=== PATIENT | female | born 1965 | race African-American/Black ===

== ENCOUNTER 2017-03-27 22:04 | Emergency (ER) | payer OTHER, MEDICAID ==
[~2017-03-27] VITALS: Ht 175.3 cm; Wt 97.1 kg
[~2017-03-27 22:04] MED LIST: ALBU18 IN; ALPR-140 PO; ASPI325T4 PO; DIPH50CA PO; FLUO20CA19 PO; GABA800T97 PO; HYDR-2595 PO; HYDR25TA4 PO; INSLANTI SC; INSLISPI SC; LEVO500T21 PO; METO-169 PO; METR500T PO; MIRT15TA3 PO; PROM25TA5 PO
[2017-03-27 22:53] LABS: Basophils # (auto) 0.1 uL; Basophils % (auto) 1.1 % (0.0-2.0); Eosinophils # (auto) 0.3 uL; Eosinophils % (auto) 2.7 % (0.0-7.0); Hematocrit 43.5 % (36.0-46.0); Hemoglobin 14.2 g/dL (12.2-16.2); Lymphocytes # (auto) 4.2 uL; Lymphocytes % (auto) 36.9 % (10.0-50.0); Mean Corpuscular Hemoglobin 28.4 pg (28.0-32.0); Mean Corpuscular Hgb Conc. 32.5 g/dL (32.0-36.0); Mean Corpuscular Volume 87.2 fL (80.0-100.0); Mean Platelet Volume 10.6 fL (6.9-10.8); Monocytes # (auto) 0.5 uL; Monocytes % (auto) 4.5 % (0.0-12.0); Neutrophils # (auto) 6.2 uL; Neutrophils % (auto) 54.8 % (37.0-80.0); Nucleated Red Blood Cells % 0.1 %; Platelet Count (auto) 197 10^3/uL (140-450); Red Cell Distribution Width 15.4 % (11.8-14.3); White Blood Cell 11.3 10^3/uL (4.4-10.8)
[2017-03-27 23:05] LABS: Albumin 3.2 g/dL (3.4-5.0); Amylase 37 U/L (25-115); Anion Gap 10 (5-15); Aspartate Aminotransferase 16 U/L (15-37); Blood Urea Nitrogen 18 mg/dL (7-18); Calcium 8.4 mg/dL (8.5-10.1); Carbon Dioxide 24 mmol/L (21-32); Chloride 99 mmol/L (98-107); GFR African American 60 mL/min; GFR Non-African American 50 mL/min; Glucose 333 mg/dL (74-106); Magnesium 2.1 mg/dL (1.6-2.6); Potassium 3.7 mmol/L (3.5-5.1); Sodium 133 mmol/L (136-145)
[2017-03-27 23:12] LABS: Alkaline Phosphatase 106 U/L (45-117); Bilirubin, Total 0.3 mg/dL (0.2-1.0); Total Protein 8.1 g/dL (6.4-8.2)
[2017-03-28] MEDS ORDERED: ONDANSETRON HCL 4 MG/2 ML VIAL IV ONE (02:00)
[2017-03-28] MEDS ORDERED: SODIUM CHLORIDE 0.9% 1,000 ML IV ONE (02:00)
[2017-03-28] MEDS ORDERED: MORPHINE SULFATE 4 MG/ML SYRG IV ONE (02:00)
[2017-03-28] MEDS ORDERED: InsuLIN REG 1unit/0.01ml Soln (100units/ml) IV ONE (02:45)
[2017-03-28 03:52] LABS: Urine Bilirubin Negative (Negative); Urine Blood Negative /uL (Negative); Urine Color Yellow (Yellow); Urine Glucose 4+ mg/dL (Normal); Urine Ketone Negative (Negative); Urine Nitrite Negative (Negative); Urine RBC 1 /hpf (0 - 4); Urine Squamous Epithelial Cell FEW /hpf (<5); Urine Urobilinogen Normal (Negative)
[2017-03-28] MEDS ORDERED: FLUCONAZOLE 100 MG TAB PO ONE (05:00)
[2017-03-28] MEDS ORDERED: cefTRIAXone 1GM/10ml IVPUSH 10 ML IV ONE (05:00)
[2017-03-28] MEDS ORDERED: ENOXAPARIN SOD 100 MG/1 ML SYRINGE SC ONE (05:30)
[2017-03-28 06:20] VITALS: BP 116/86
== END 2017-03-28 06:11 | disposition short-term general hospital (02) ==
LOC: ER 22:04
DX: I74.5 Embolism and thrombosis of iliac artery (principal); N39.0 Urinary tract infection, site not specified; K57.90 Diverticulosis of intestine, part unspecified, without perforation or abscess without bleeding; B37.9 Candidiasis, unspecified; I25.10 Atherosclerotic heart disease of native coronary artery without angina pectoris; E11.22 Type 2 diabetes mellitus with diabetic chronic kidney disease; I12.9 Hypertensive chronic kidney disease with stage 1 through stage 4 chronic kidney disease, or unspecified chronic kidney disease; N18.9 Chronic kidney disease, unspecified; J44.9 Chronic obstructive pulmonary disease, unspecified; K21.9 Gastro-esophageal reflux disease without esophagitis; E78.5 Hyperlipidemia, unspecified; I25.2 Old myocardial infarction; I73.9 Peripheral vascular disease, unspecified; F17.210 Nicotine dependence, cigarettes, uncomplicated; Z95.1 Presence of aortocoronary bypass graft; Z79.4 Long term (current) use of insulin; Z79.82 Long term (current) use of aspirin; Z86.73 Personal history of transient ischemic attack (TIA), and cerebral infarction without residual deficits; Z83.3 Family history of diabetes mellitus; Z82.3 Family history of stroke
CPT/HCPCS: 36415; 74176; 80053; 81001; 82010; 82150; 82962; 83690; 83735; 84484; 85025; 93005; 96361; 96372; 96374; 96375; 99285; J1650; J1815; J2270; J2405; J7030

== ENCOUNTER 2018-01-12 10:33 | Emergency (ER) | payer OTHER, MEDICAID ==
[~2018-01-12] VITALS: Ht 175.3 cm; Wt 99.8 kg
[~2018-01-12 10:33] MED LIST changes: +FLUO-125 PO; -FLUO20CA19 PO; -LEVO500T21 PO; -METR500T PO
[2018-01-12 10:46] VITALS: BP 133/55
[2018-01-12] MEDS ORDERED: ONDANSETRON ODT 4 MG TAB PO ONE (13:30)
[2018-01-12] MEDS ORDERED: MEPERIDINE HCL (50 MG/ML) 1 ML VIAL IM ONE (13:30)
== END 2018-01-12 13:55 | disposition left against medical advice (07) ==
LOC: ER 10:33
DX: R51 Headache (principal); M48.07 Spinal stenosis, lumbosacral region; M19.90 Unspecified osteoarthritis, unspecified site; I25.810 Atherosclerosis of coronary artery bypass graft(s) without angina pectoris; J44.9 Chronic obstructive pulmonary disease, unspecified; K21.9 Gastro-esophageal reflux disease without esophagitis; E78.5 Hyperlipidemia, unspecified; I25.2 Old myocardial infarction; E07.9 Disorder of thyroid, unspecified; E11.22 Type 2 diabetes mellitus with diabetic chronic kidney disease; I13.0 Hypertensive heart and chronic kidney disease with heart failure and stage 1 through stage 4 chronic kidney disease, or unspecified chronic kidney disease; N18.9 Chronic kidney disease, unspecified; I50.9 Heart failure, unspecified; F17.210 Nicotine dependence, cigarettes, uncomplicated; Z88.8 Allergy status to other drugs, medicaments and biological substances; Z79.899 Other long term (current) drug therapy; Z79.4 Long term (current) use of insulin; Z86.73 Personal history of transient ischemic attack (TIA), and cerebral infarction without residual deficits; Z90.710 Acquired absence of both cervix and uterus; Z95.1 Presence of aortocoronary bypass graft; Y93.89 Activity, other specified; V49.9XXA Car occupant (driver) (passenger) injured in unspecified traffic accident, initial encounter; Y99.8 Other external cause status; Y92.89 Other specified places as the place of occurrence of the external cause
CPT/HCPCS: 72131; 96372; 99284; J2175; Q0162

== ENCOUNTER 2019-07-23 19:40 | Emergency (ER) | payer OTHER, MEDICAID ==
[~2019-07-23] VITALS: Ht 162.6 cm; Wt 99.8 kg
[~2019-07-23 19:40] MED LIST changes: -ALPR-140 PO; +ALPR0.5T8 PO; -MIRT15TA3 PO; +MIRT1TAB38 PO
[2019-07-23] MEDS ORDERED: SODIUM CHLORIDE 0.9% 2,000 ML IV ONE (19:45)
[2019-07-23 21:16] LABS: Basophils # (auto) 0.1 10 ^3/uL (0-0.2); Basophils % (auto) 0.8 % (0.0-2.0); Eosinophils # (auto) 0.3 10 ^3/uL (0-0.8); Eosinophils % (auto) 3.1 % (0.0-7.0); Hematocrit 39.8 % (36.0-46.0); Hemoglobin 12.8 g/dL (12.2-16.2); Lymphocytes # (auto) 3.5 10 ^3/uL (0.4-5.4); Lymphocytes % (auto) 43.4 % (10.0-50.0); Mean Corpuscular Hemoglobin 28.4 pg (28.0-32.0); Mean Corpuscular Hgb Conc. 32.3 g/dL (32.0-36.0); Mean Corpuscular Volume 87.9 fL (80.0-100.0); Monocytes # (auto) 0.4 10 ^3/uL (0-1.3); Monocytes % (auto) 5.3 % (0.0-12.0); Neutrophils # (auto) 3.9 10 ^3/uL (1.6-8.6); Neutrophils % (auto) 47.4 % (37.0-80.0); Nucleated Red Blood Cells % 0.1 %; Platelet Count (auto) 122 10^3/uL (140-450); Red Blood Cells 4.53 10^6/uL (4.0-5.20); Red Cell Distribution Width 15.1 % (11.8-14.3); White Blood Cell 8.1 10^3/uL (4.4-10.8)
[2019-07-23 21:31] LABS: INR 1.01 (0.9-1.15); Partial Thromboplastin Time 22.3 sec (23.64-32.05)
[2019-07-23 21:36] LABS: Albumin 3.1 g/dL (3.4-5.0); Calcium 8.7 mg/dL (8.5-10.1); Potassium 3.2 mmol/L (3.5-5.1)
--- NOTE | 2019-07-23 21:37 | NUR ---
Respiratory note: ALBUTEROL HFA TX ADMINISTERED BY RN.
[2019-07-23 21:39] LABS: BUN/Creatinine Ratio 22.7; Bilirubin, Total 0.3 mg/dL (0.2-1.0); Total Protein 7.1 g/dL (6.4-8.2)
[2019-07-23] MEDS ORDERED: ALBUTEROL SULF HFA 90MCG INH 200DOSE IN SCH (22:00)
[2019-07-23 23:01] VITALS: BP 114/51
== END 2019-07-24 00:09 | disposition home or self-care (01) ==
LOC: ER 19:40 → EDBD 19:40 → ER 07-24 00:09
DX: J20.9 Acute bronchitis, unspecified (principal); I25.10 Atherosclerotic heart disease of native coronary artery without angina pectoris; I25.2 Old myocardial infarction; K21.9 Gastro-esophageal reflux disease without esophagitis; E78.5 Hyperlipidemia, unspecified; J44.9 Chronic obstructive pulmonary disease, unspecified; I12.9 Hypertensive chronic kidney disease with stage 1 through stage 4 chronic kidney disease, or unspecified chronic kidney disease; E11.22 Type 2 diabetes mellitus with diabetic chronic kidney disease; N18.9 Chronic kidney disease, unspecified; F17.210 Nicotine dependence, cigarettes, uncomplicated; Z20.828 Contact with and (suspected) exposure to other viral communicable diseases; Z86.73 Personal history of transient ischemic attack (TIA), and cerebral infarction without residual deficits; Z95.1 Presence of aortocoronary bypass graft; Z90.710 Acquired absence of both cervix and uterus
CPT/HCPCS: 36415; 71045; 80053; 82728; 83605; 83880; 84484; 85025; 85379; 85610; 85730; 87040; 87070; 87635; 87804; 87880; 93005; 94640; 99001; 99285; J7030

== ENCOUNTER 2020-08-30 12:39 | Inpatient (IN) | payer OTHER, MEDICAID ==
[~2020-08-30] VITALS: Ht 172.7 cm; Wt 95.3 kg
[~2020-08-30 12:39] MED LIST changes: -METO-169 PO; +METO-289 PO
[2020-08-30 13:34] LABS: Basophils # (auto) 0 10 ^3/uL (0-0.2); Basophils % (auto) 0.5 % (0.0-2.0); Eosinophils # (auto) 0.2 10 ^3/uL (0-0.8); Eosinophils % (auto) 2.8 % (0.0-7.0); Hematocrit 42.5 % (36.0-46.0); Hemoglobin 13.7 g/dL (12.2-16.2); Lymphocytes # (auto) 2.4 10 ^3/uL (0.4-5.4); Lymphocytes % (auto) 33.5 % (10.0-50.0); Mean Corpuscular Hemoglobin 28.5 pg (28.0-32.0); Mean Corpuscular Hgb Conc. 32.3 g/dL (32.0-36.0); Mean Corpuscular Volume 88.1 fL (80.0-100.0); Monocytes # (auto) 0.4 10 ^3/uL (0-1.3); Neutrophils # (auto) 4.1 10 ^3/uL (1.6-8.6); Neutrophils % (auto) 58.2 % (37.0-80.0); Nucleated Red Blood Cells % 0.1 %; Platelet Count (auto) 176 10^3/uL (140-450); Red Blood Cells 4.82 10^6/uL (4.0-5.20); Red Cell Distribution Width 15.8 % (11.8-14.3); White Blood Cell 7.1 10^3/uL (4.4-10.8)
[2020-08-30 13:50] LABS: Albumin 3.2 g/dL (3.4-5.0); Anion Gap 8 (5-15); BUN/Creatinine Ratio 14.5; Blood Urea Nitrogen 23 mg/dL (7-18); Calcium 8.2 mg/dL (8.5-10.1); Carbon Dioxide 27 mmol/L (21-32); Chloride 99 mmol/L (98-107); GFR African American 43 mL/min; GFR Non-African American 36 mL/min; INR 0.97 (0.9-1.15); Partial Thromboplastin Time 24.3 sec (23.0-31.2); Potassium 3.6 mmol/L (3.5-5.1); Sodium 134 mmol/L (136-145)
[2020-08-30 13:55] LABS: Alanine Aminotransferase 25 U/L (13-56); Alkaline Phosphatase 114 U/L (45-117); Aspartate Aminotransferase 16 U/L (15-37); Bilirubin, Total 0.4 mg/dL (0.2-1.0); Total Protein 7.5 g/dL (6.4-8.2)
[2020-08-30 13:57] LABS: Glucose 408 mg/dL (74-106)
[2020-08-30] MEDS ORDERED: ONDANSETRON HCL 4 MG/2 ML VIAL IV ONE (14:00)
[2020-08-30] MEDS ORDERED: SODIUM CHLORIDE 0.9% 1,000 ML IV ONE (14:00)
[2020-08-30] MEDS ORDERED: MORPHINE SULFATE 4 MG/ML SYR/VIAL IV ONE (14:00)
[2020-08-30] MEDS ORDERED: InsuLIN REG 1unit/0.01ml Soln (100units/ml) IV ONE (14:00)
[2020-08-30] MEDS ORDERED: diphenhdrAMINE HCL 50 MG/1 ML VL ONE (14:26)
[2020-08-30] MEDS ORDERED: diphenhdrAMINE HCL 50 MG/1 ML VL IV ONE (14:45)
[2020-08-30] MEDS ORDERED: EPINEPHrine HCL 1 MG/1 ML AMP SC ONE (15:15)
[2020-08-30 16:31] LABS: Urine WBC None Seen /hpf (0 - 5)
[2020-08-30 16:37] LABS: Urine Bacteria NONE SEEN /hpf (None Seen); Urine Blood Negative /uL (Negative); Urine Specific Gravity 1.027 (1.001-1.035)
[2020-08-30] MEDS ORDERED: NITROGLYCERIN 0.4 MG SL TAB SL PRN (18:15)
[2020-08-30] MEDS: MEPERIDINE HCL (25 MG/ML) 1ML VIAL IV PRN (18:23)
[2020-08-30] MEDS: PROMETHAZINE HCL 25 MG/ML 1ML IV PRN (18:23)
[2020-08-30 20:46] VITALS: BP 118/55
[2020-08-30] MEDS: MIRTAZAPINE 30 MG TAB PO SCH (21:58)
[2020-08-30] MEDS: GABAPENTIN 100 MG CAP PO SCH (21:58)
[2020-08-30 22:00] VITALS: BP 118/55
[2020-08-30] MEDS ORDERED: METOPROLOL SUCCINATE XL 50 MG TAB PO SCH (22:00)
[2020-08-30] MEDS: OXYCODONE W/ ACETAMINOPHEN 5/325MG TABLET PO PRN (22:10)
[2020-08-31] VITALS (7 sets, daily range): BP systolic 107–150; BP diastolic 0–71
[2020-08-31] MEDS: PROMETHAZINE HCL 25 MG/ML 1ML IV PRN ×3 (01:33→19:00)
[2020-08-31] MEDS: MEPERIDINE HCL (25 MG/ML) 1ML VIAL IV PRN ×6 (01:34→23:00)
[2020-08-31] MEDS ORDERED: ATOR40TA52 PO (02:49)
[2020-08-31] MEDS ORDERED: PNEUMOCOCCAL VACC POLYS 25 MCG/0.5 ML VIAL IM ONE (03:00)
[2020-08-31] MEDS: OXYCODONE W/ ACETAMINOPHEN 5/325MG TABLET PO PRN (04:30)
[2020-08-31] MEDS: GABAPENTIN 100 MG CAP PO SCH ×2 (04:42→14:30)
[2020-08-31] MEDS: ALPRAZolam 0.5 MG TAB PO SCH (09:26)
[2020-08-31] MEDS: FLUoxetine HCL 20 MG CAP PO SCH (09:28)
[2020-08-31] MEDS ORDERED: ASPirin 325 MG TAB PO SCH (10:00)
[2020-08-31] MEDS: InsuLIN REG 1unit/0.01ml Soln (100units/ml) SC SCH ×3 (11:30→22:00)
[2020-08-31] MEDS ORDERED: DEXTROSE (50%) 50ML SYRG IV PRN (11:30)
[2020-08-31] MEDS: ACCU-CHEK COMFORT CURVE STRIP VI SCH ×3 (11:30→21:40)
[2020-08-31 11:50] LABS: BUN/Creatinine Ratio 18.9; Calcium 8.8 mg/dL (8.5-10.1); Potassium 4.1 mmol/L (3.5-5.1)
[2020-08-31] MEDS: ASPirin-EC 81 mg tab PO SCH (13:11)
[2020-08-31] MEDS: METOPROLOL TARTRATE 50 MG TAB PO SCH ×2 (13:11→21:37)
[2020-08-31 14:02] LABS: Amphetamine Screen, Urine NEGATIVE (NEGATIVE); Barbiturate Scree,Urine NEGATIVE (NEGATIVE); Benzodiazephine Screen, Urine NEGATIVE (NEGATIVE); Cannabinoid Screen, Urine NEGATIVE (NEGATIVE); Cocaine Screen, Urine NEGATIVE (NEGATIVE); Opiate Scree,Urine NEGATIVE (NEGATIVE); Phencyclidine Screen, Urine NEGATIVE (NEGATIVE)
[2020-08-31] MEDS ORDERED: diphenhdrAMINE HCL 25 MG CAP PO PRN (21:15)
[2020-08-31] MEDS: MIRTAZAPINE 30 MG TAB PO SCH (21:28)
[2020-08-31] MEDS: SODIUM CHLORIDE 0.9% 1,000 ML IV SCH (21:30)
[2020-08-31] MEDS ORDERED: ATORVASTATIN 20 MG TAB PO SCH (22:00)
[2020-08-31] MEDS: GABAPENTIN 300 MG CAP PO SCH ×2 (22:00→23:14)
[2020-08-31] MEDS: INSULIN LANTUS (GLARGINE) 1 /0.01ml (100units/ml) SC SCH (22:00)
[2020-08-31] MEDS: METOCLOPRAMIDE HCL 10 MG TAB PO SCH (23:01)
[2020-08-31] MEDS ORDERED: TEMAZEPAM 15 MG CAP PO ONE (23:30)
[2020-09-01] MEDS: PROMETHAZINE HCL 25 MG/ML 1ML IV PRN ×2 (04:03→09:58)
[2020-09-01] MEDS: MEPERIDINE HCL (25 MG/ML) 1ML VIAL IV PRN ×2 (04:03→09:57)
[2020-09-01 05:00] VITALS: BP 133/52
[2020-09-01] MEDS: GABAPENTIN 300 MG CAP PO SCH ×2 (06:00→13:59)
[2020-09-01] MEDS: METOCLOPRAMIDE HCL 10 MG TAB PO SCH ×2 (06:00→13:59)
[2020-09-01] MEDS: ACCU-CHEK COMFORT CURVE STRIP VI SCH (06:12)
[2020-09-01] MEDS: InsuLIN REG 1unit/0.01ml Soln (100units/ml) SC SCH (06:13)
[2020-09-01] MEDS: INSULIN LANTUS (GLARGINE) 1 /0.01ml (100units/ml) SC SCH (07:00)
[2020-09-01] MEDS: SODIUM CHLORIDE 0.9% 1,000 ML IV SCH (07:30)
[2020-09-01 08:20] LABS: Basophils # (auto) 0 10 ^3/uL (0-0.2); Basophils % (auto) 0.4 % (0.0-2.0); Eosinophils # (auto) 0 10 ^3/uL (0-0.8); Eosinophils % (auto) 0.1 % (0.0-7.0); Hematocrit 41.1 % (36.0-46.0); Hemoglobin 13.7 g/dL (12.2-16.2); Lymphocytes # (auto) 0.8 10 ^3/uL (0.4-5.4); Mean Corpuscular Hemoglobin 29.4 pg (28.0-32.0); Mean Corpuscular Hgb Conc. 33.4 g/dL (32.0-36.0); Monocytes # (auto) 0 10 ^3/uL (0-1.3); Monocytes % (auto) 0.6 % (0.0-12.0); Neutrophils # (auto) 5.4 10 ^3/uL (1.6-8.6); Neutrophils % (auto) 86.9 % (37.0-80.0); Platelet Count (auto) 143 10^3/uL (140-450); Red Blood Cells 4.67 10^6/uL (4.0-5.20); Red Cell Distribution Width 15.7 % (11.8-14.3); White Blood Cell 6.3 10^3/uL (4.4-10.8)
[2020-09-01 08:30] VITALS: BP 157/76
[2020-09-01 08:35] LABS: Albumin 2.8 g/dL (3.4-5.0); Calcium 8.3 mg/dL (8.5-10.1); Magnesium 2.6 mg/dL (1.6-2.6)
[2020-09-01 08:41] LABS: BUN/Creatinine Ratio 24.7; Bilirubin, Total 0.3 mg/dL (0.2-1.0); Total Protein 7.2 g/dL (6.4-8.2)
[2020-09-01] MEDS ORDERED: ERGOCALCIFEROL 50,000 UNIT(1.25MG) CAP PO SCH (09:00)
[2020-09-01] MEDS ORDERED: CHOL20007 PO (09:07)
[2020-09-01] MEDS ORDERED: DEXTROSE (50%) 50ML SYRG IV PRN (09:15)
[2020-09-01] MEDS: ASPirin-EC 81 mg tab PO SCH (09:48)
[2020-09-01] MEDS: METOPROLOL TARTRATE 50 MG TAB PO SCH (09:48)
[2020-09-01] MEDS: FLUoxetine HCL 20 MG CAP PO SCH (09:49)
[2020-09-01] MEDS: ALPRAZolam 0.5 MG TAB PO SCH (09:49)
[2020-09-01] MEDS ORDERED: DexAMETHasone INJECTION 10 MG in D5W 5% 50 ML IV SCH (10:00)
[2020-09-01] MEDS ORDERED: InsuLIN REG 1unit/0.01ml Soln (100units/ml) SC SCH ×2 (11:30→22:00)
[2020-09-01] MEDS ORDERED: ACCU-CHEK COMFORT CURVE STRIP VI SCH (11:30)
[2020-09-01 11:49] VITALS: BP 161/80
[2020-09-01 12:07] VITALS: BP 161/80
[2020-09-01 12:30] VITALS: BP 125/68
== END 2020-09-01 14:14 | disposition home health service (06) | DRG 637 ==
LOC: EDBD 12:39 → ER 12:39 → TELE 18:01 → EEVIPCON 18:01 → TELE-CENTR 20:46
PROVIDERS: ADMIT Nurse Practitioner Acute Care; ATTEND Internal Medicine
PROC: 5A09357 Assistance with Respiratory Ventilation, Less than 24 Consecutive Hours, Continuous Positive Airway Pressure (ICD-10-PCS; principal; 2020-08-31)
DX: E11.65 Type 2 diabetes mellitus with hyperglycemia (principal); N17.0 Acute kidney failure with tubular necrosis; I69.354 Hemiplegia and hemiparesis following cerebral infarction affecting left non-dominant side; M54.5 Low back pain; I25.10 Atherosclerotic heart disease of native coronary artery without angina pectoris; G89.4 Chronic pain syndrome; Z20.822 Contact with and (suspected) exposure to COVID-19; E55.9 Vitamin D deficiency, unspecified; E66.01 Morbid (severe) obesity due to excess calories; E78.5 Hyperlipidemia, unspecified; E89.0 Postprocedural hypothyroidism; G89.0 Central pain syndrome; I12.9 Hypertensive chronic kidney disease with stage 1 through stage 4 chronic kidney disease, or unspecified chronic kidney disease; J44.9 Chronic obstructive pulmonary disease, unspecified; E11.42 Type 2 diabetes mellitus with diabetic polyneuropathy; E11.51 Type 2 diabetes mellitus with diabetic peripheral angiopathy without gangrene; E11.22 Type 2 diabetes mellitus with diabetic chronic kidney disease; M19.90 Unspecified osteoarthritis, unspecified site; E11.21 Type 2 diabetes mellitus with diabetic nephropathy; Z79.4 Long term (current) use of insulin; Z68.31 Body mass index [BMI] 31.0-31.9, adult; Z90.710 Acquired absence of both cervix and uterus; I25.2 Old myocardial infarction; Z79.82 Long term (current) use of aspirin; Z79.899 Other long term (current) drug therapy; Z82.3 Family history of stroke; Z82.49 Family history of ischemic heart disease and other diseases of the circulatory system; Z83.3 Family history of diabetes mellitus; Z95.1 Presence of aortocoronary bypass graft; N18.31 Chronic kidney disease, stage 3a; W18.30XA Fall on same level, unspecified, initial encounter; F17.210 Nicotine dependence, cigarettes, uncomplicated; F41.9 Anxiety disorder, unspecified; F32.9 Major depressive disorder, single episode, unspecified
CPT/HCPCS: 36415; 70450; 70551; 71045; 72100; 72131; 80048; 80053; 80061; 80307; 81001; 82306; 82962; 83036; 83735; 83880; 84443; 84484; 85025; 85610; 85730; 87426; 93005; 93886; 94660; 94760; 96374; 96375; 97163; G0378; J0171; J1100; J1815; J2405; J7060

== ENCOUNTER 2020-10-13 11:44 | Emergency (ER) | payer OTHER, MEDICAID ==
[~2020-10-13] VITALS: Ht 175.3 cm; Wt 99.8 kg
[~2020-10-13 11:44] MED LIST changes: +ATOR40TA52 PO
[2020-10-13 13:41] LABS: Basophils # (auto) 0.1 10 ^3/uL (0-0.2); Basophils % (auto) 0.7 % (0.0-2.0); Eosinophils # (auto) 0.2 10 ^3/uL (0-0.8); Eosinophils % (auto) 2.5 % (0.0-7.0); Hematocrit 41.4 % (36.0-46.0); Hemoglobin 13.9 g/dL (12.2-16.2); Lymphocytes # (auto) 2.8 10 ^3/uL (0.4-5.4); Lymphocytes % (auto) 37.5 % (10.0-50.0); Mean Corpuscular Hemoglobin 29.3 pg (28.0-32.0); Mean Corpuscular Hgb Conc. 33.6 g/dL (32.0-36.0); Mean Corpuscular Volume 87.2 fL (80.0-100.0); Monocytes # (auto) 0.2 10 ^3/uL (0-1.3); Monocytes % (auto) 3.3 % (0.0-12.0); Neutrophils # (auto) 4.1 10 ^3/uL (1.6-8.6); Nucleated Red Blood Cells % 0.1 %; Platelet Count (auto) 169 10^3/uL (140-450); Red Blood Cells 4.75 10^6/uL (4.0-5.20); Red Cell Distribution Width 15.1 % (11.8-14.3); White Blood Cell 7.3 10^3/uL (4.4-10.8)
[2020-10-13 13:57] LABS: INR 1.01 (0.9-1.15); Partial Thromboplastin Time 24.4 sec (23.0-31.2)
[2020-10-13 14:05] LABS: Alanine Aminotransferase 27 U/L (13-56); Albumin 3.5 g/dL (3.4-5.0); Anion Gap 3 (5-15); Aspartate Aminotransferase 24 U/L (15-37); BUN/Creatinine Ratio 15.6; Blood Urea Nitrogen 19 mg/dL (7-18); Calcium 9.8 mg/dL (8.5-10.1); Carbon Dioxide 29 mmol/L (21-32); Chloride 104 mmol/L (98-107); GFR African American 59 mL/min; GFR Non-African American 48 mL/min; Glucose 241 mg/dL (74-106); Potassium 4.3 mmol/L (3.5-5.1); Sodium 136 mmol/L (136-145)
[2020-10-13 14:10] LABS: Alkaline Phosphatase 95 U/L (45-117); Bilirubin, Total 0.5 mg/dL (0.2-1.0); Total Protein 7.9 g/dL (6.4-8.2)
[2020-10-13 16:41] VITALS: BP 133/77
[2020-10-13] MEDS ORDERED: IOHEXOL 350 MG/ML 100ML IJ ONE (16:57)
[2020-10-13] MEDS ORDERED: FUROSEMIDE 40 MG/4 ML VIAL IV ONE (17:45)
[2020-10-13] MEDS ORDERED: ONDANSETRON HCL 4 MG/2 ML VIAL IV ONE (17:45)
[2020-10-13] MEDS ORDERED: SPIRONOLACTONE 25 MG TAB PO ONE (17:45)
[2020-10-13] MEDS ORDERED: HYDROmorphone HCL 2 MG/ML VL IV ONE (17:45)
[2020-10-13] MEDS ORDERED: HYDROcodone-ACET 10/325MG TAB PO ONE ×2 (18:45→20:45)
[2020-10-13 21:24] LABS: Urine Bacteria MANY /hpf (None Seen); Urine Blood Negative /uL (Negative); Urine Hyaline Cast FEW /lpf (0 - 2); Urine Mucus FEW (None Seen); Urine Specific Gravity 1.017 (1.001-1.035); Urine WBC 9 /hpf (0 - 5)
== END 2020-10-13 21:35 | disposition left against medical advice (07) ==
LOC: ER 11:44
DX: R07.81 Pleurodynia (principal); R09.89 Other specified symptoms and signs involving the circulatory and respiratory systems; E11.21 Type 2 diabetes mellitus with diabetic nephropathy; R79.1 Abnormal coagulation profile; E89.0 Postprocedural hypothyroidism; I69.30 Unspecified sequelae of cerebral infarction; F17.210 Nicotine dependence, cigarettes, uncomplicated; J44.9 Chronic obstructive pulmonary disease, unspecified; I25.810 Atherosclerosis of coronary artery bypass graft(s) without angina pectoris; F32.9 Major depressive disorder, single episode, unspecified; E11.9 Type 2 diabetes mellitus without complications; K21.9 Gastro-esophageal reflux disease without esophagitis; E78.5 Hyperlipidemia, unspecified; I10 Essential (primary) hypertension; Z79.899 Other long term (current) drug therapy; Z91.040 Latex allergy status; Z88.5 Allergy status to narcotic agent; Z88.8 Allergy status to other drugs, medicaments and biological substances
CPT/HCPCS: 36415; 71045; 71275; 80053; 81001; 82962; 83735; 83880; 84443; 84484; 85025; 85049; 85379; 85610; 85730; 87086; 93005; 96374; 96375; 99285; J1940; J2405; Q9967